=== PATIENT | female | born 1970 | race Caucasian/White ===

== ENCOUNTER 2020-03-19 12:12 | Observation (INO) ==
[~2020-03-19 12:12] MED LIST: LORazepam 1 mg TAB (*) PO ONE; NS 0.9% 500 ml BAG 500 ML IV ONE; Ondansetron 4 mg VIAL 2 MG/ML 2 ml VIAL IV ONE; oxyCODONE SR 10 mg TAB (*) PO ONE
[2020-03-19] MEDS ORDERED: Clindamycin 900 MG/D5W BAG(*) 900 MG/50 ML BAG IVPB ONE (13:00)
[2020-03-19] MEDS ORDERED: HYDROmorphone PCA 20 MG/20 ML PCA.SYRING PCA SCH (13:00)
[2020-03-19] MEDS ORDERED: Ondansetron 4 mg VIAL 2 MG/ML 2 ml VIAL ONE (13:09)
[2020-03-19] MEDS ORDERED: LORazepam 1 mg TAB (*) ONE (13:10)
[2020-03-19] MEDS ORDERED: oxyCODONE SR 10 mg TAB (*) ONE (13:10)
[2020-03-19 13:13] LABS: Anion Gap 8 mmol/L (2-11); BUN/Creatinine Ratio 18.3 (8-20); Blood Urea Nitrogen 13 mg/dL (6-24); CO2 Carbon Dioxide 22 mmol/L (22-32); Calcium 9.5 mg/dL (8.6-10.3); Chloride 108 mmol/L (101-111); EGFR African American 105.4 (>60); EGFR Non-African American 87.1 (>60); Glucose 89 mg/dL (70-100); Potassium 4.1 mmol/L (3.5-5.0); Sodium 138 mmol/L (135-145)
[2020-03-19 13:20] LABS: HCG Pregnancy < 0.60 mIU/mL
[2020-03-19 13:21] LABS: ABS Basophils 0.1 10^3/ul (0-0.2); ABS Eosinophils 0.1 10^3/ul (0-0.6); ABS Lymphocytes 1.5 10^3/ul (1.0-4.8); ABS Monocytes 0.5 10^3/ul (0-0.8); Eosinophil % 1.9 %; Hematocrit 31 % (35-47); Hemoglobin 9.4 g/dL (12.0-16.0); Lymphocyte % 23.3 %; Mean Corpuscular HGB Conc 30 g/dL (31-36); Mean Corpuscular Hemoglobin 21 pg (27-31); Mean Corpuscular Volume 70 fL (80-97); Mean Platelet Volume 9.5 fL (7.4-10.4); Platelet Count 310 10^3/uL (150-450); Red Blood Count 4.41 10^6 /uL (3.70-4.87); Red Cell Distribution Width 44 % (10-15); White Blood Count 6.6 10^3/uL (3.5-10.8)
[2020-03-19] MEDS ORDERED: LORazepam 1 mg TAB (*) PO ONE (13:30)
[2020-03-19] MEDS ORDERED: oxyCODONE SR 10 mg TAB (*) PO ONE (13:30)
[2020-03-19] MEDS ORDERED: NS 0.9% 500 ml BAG 500 ML IV ONE (13:30)
[2020-03-19] MEDS ORDERED: Ondansetron 4 mg VIAL 2 MG/ML 2 ml VIAL IV ONE (13:30)
[2020-03-19 13:48] LABS: Microcytosis 3+; Polychromasia 1+; Schistocytes 1+; Tear Drop Cells 1+
[2020-03-19] MEDS ORDERED: Iohexol 350 (CONTRAST) 200 ML MDV IV ONE (13:49)
[2020-03-19] MEDS ORDERED: Lidocaine 1% VIAL 10 MG/ML VIAL ONE (13:49)
[2020-03-19] MEDS ORDERED: Heparin 2 UNITS/ML 1000 mls 2,000 ML IV ONE (13:49)
[2020-03-19] MEDS ORDERED: Midazolam 5 mg/5 ml VIAL 1 mg/ml 5 ml VIAL (5 mg) ONE (14:06)
[2020-03-19] MEDS ORDERED: fentaNYL 250 mcg/5 ml 50 MCG/ML 5 ml VIAL (250 MCG) ONE (14:06)
[2020-03-19] MEDS ORDERED: nitroGLYCERIN DRIP 25,000 MCG/250 ML BTL ONE (14:07)
[2020-03-19] MEDS ORDERED: HYDROmorphone 1 MG/1 ML SYRINGE ONE (16:28)
[2020-03-19] MEDS ORDERED: HYDROmorphone 0.5 MG/0.5 ML SYRINGE IV ONE (19:14)
[2020-03-19] MEDS: Ondansetron 4 mg VIAL 2 MG/ML 2 ml VIAL IV SCH (20:38)
[2020-03-20] MEDS: Ondansetron 4 mg VIAL 2 MG/ML 2 ml VIAL IV SCH (03:13)
[2020-03-20] MEDS ORDERED: HYDROcodone/ACETAMIN 5/325 mg TAB PO PRN (07:28)
[2020-03-20 07:32] VITALS: BP 123/68
[2020-03-20] MEDS ORDERED: CMC:Ketorolac 10 mg TAB (NF) PO SCH (08:00)
[2020-03-22] MEDS ORDERED: Scopolamine PATCH Remove NOTE PATCH OFF ONE (13:30)
== END 2020-03-20 11:00 | disposition home or self-care (01) ==
LOC: SSU 12:12 → CHICATH 12:12
PROVIDERS: ADMIT Internal Medicine; ATTEND Internal Medicine